=== PATIENT | male | born 1980 | race Caucasian/White ===

== ENCOUNTER → 2016-08-28 06:47 | Emergency (ER) | payer OTHER ==
[~2016-08-28 06:47] MED LIST: NS 0.9% 1000 ML* 1,000 ML IV ONE; levETIRAcetam TAB* 500 MG PO ONE
[2016-08-28 08:04] LABS: ALT 21 U/L (7-52); AST 17 U/L (13-39); Albumin 3.9 g/dL (3.2-5.2); Alkaline Phosphatase 39 U/L (34-104); Anion Gap 5 mmol/L (2-11); BUN/Creatinine Ratio 12.7 (8-20); Blood Urea Nitrogen 9 mg/dL (6-24); C Reactive Protein < 1.00 mg/L (< 5.00); CO2 Carbon Dioxide 24 mmol/L (22-32); Calcium 8.8 mg/dL (8.6-10.3); Chloride 99 mmol/L (101-111); Creatine Kinase 201 U/L (10-223); EGFR African American 159.7 (>60); EGFR Non-African American 124.2 (>60); Globulin 1.9 g/dL (2-4); Glucose 90 mg/dL (70-100); Lipase 16 U/L (11.0-82.0); Potassium 3.7 mmol/L (3.5-5.0); Sodium 128 mmol/L (133-145); Total Protein 5.8 g/dL (6.4-8.9)
[2016-08-28 08:10] LABS: Hematocrit 39 % (42-52); Hemoglobin 12.9 g/dl (14.0-18.0); Mean Corpuscular HGB Conc 33 g/dl (31-36); Mean Corpuscular Hemoglobin 28 pg (27-31); Mean Corpuscular Volume 85 fL (80-94); Mean Platelet Volume 8 um3 (7.4-10.4); Red Blood Count 4.57 10^6/ul (4.0-5.4); Red Cell Distribution Width 14 % (10.5-15); White Blood Count 6.7 10^3/ul (3.5-10.8)
[2016-08-28 09:30] LABS: Urine Bilirubin Negative (Negative); Urine Glucose Negative (Negative); Urine Nitrite Negative (Negative)
[2016-08-28 11:07] LABS: BUN/Creatinine Ratio 11.3 (8-20); Calcium 8.3 mg/dL (8.6-10.3); EGFR African American 186.7 (>60); EGFR Non-African American 145.2 (>60); Potassium 3.8 mmol/L (3.5-5.0)
--- NOTE | 2016-08-28 14:53 | ED ---
Mitch Naidu Benjamin, scribed for Casey Orellana MD on 08/28/16 at 0934 . Altered Mental Status - HPI Summary HPI Summary: 36yo male with hx of Sz comes to ED after having a Sz episode this morning. At 0545. Pt had a witnessed episode of generalized shaking, lasting approx.. 45 seconds. Pt had Sz episodes 5 years ago then 1 month ago previous to todays episode. Pt takes 2000mg Depakote 2000mg twice daily, and reports not missing any doses recently. Pt has been stressed recently according to family. PMHx includes DI. - History Of Current Complaint Chief Complaint: EDSeizure Stated Complaint: SEIZURE Time Seen by Provider: 08/28/16 07:56 Hx Obtained From: Patient, Family/Appeals Reviewer Veteran - and mother Onset/Duration: Suddenly - 0545 Timing: Lasting Seconds - 45 secs Severity Initially: Mild Severity Currently: None Aggravating Factor(s): Unknown Alleviating Factor(s): Nothing Associated Signs And Symptoms: Positive: Seizure - Allergies/Home Medications Allergies/Adverse Reactions: Allergies Allergy/AdvReac Type Severity Reaction Status Date / Time No Known Allergies Allergy Verified 08/28/16 07:29 PMH/Surg Hx/FS Hx/Imm Hx Neurological History: Reports: Hx Seizures Infectious Disease History: No Infectious Disease History: Denies: Traveled Outside the [place] in Last 30 Days - Family History Known Family History: Positive: Cardiac Disease, Hypertension Negative: Diabetes - Social History Occupation: Employed Full-time Lives: With Family Alcohol Use: None Substance Use Type: Reports: None Smoking Status (MU): Never Smoked Tobacco Review of Systems Constitutional: Negative Eyes: Negative ENT: Negative Cardiovascular: Negative Respiratory: Negative Gastrointestinal: Negative Genitourinary: Negative Musculoskeletal: Negative Skin: Negative Neurological: Other - Sz Psychological: Normal All Other Systems Reviewed And Are Negative: Yes Physical Exam Triage Information Reviewed: Yes Vital Signs On Initial Exam: Initial Vitals Temp Pulse Resp BP Pulse Ox 97.6 F 79 17 117/82 98 08/28/16 06:59 08/28/16 06:59 08/28/16 06:59 08/28/16 06:59 08/28/16 06:59 Vital Signs Reviewed: Yes Appearance: Positive: Well-Appearing, No Pain Distress, Well-Nourished Skin: Positive: Warm, Skin Color Reflects Adequate Perfusion, Dry Head/Face: Positive: Normal Head/Face Inspection Eyes: Positive: Normal ENT: Positive: Normal ENT inspection Neck: Positive: Supple, Nontender Respiratory/Lung Sounds: Positive: Clear to Auscultation, Breath Sounds Present Cardiovascular: Positive: RRR Abdomen Description: Positive: Nontender, Soft Bowel Sounds: Positive: Present Musculoskeletal: Positive: Strength/ROM Intact Neurological: Positive: Sensory/Motor Intact, Alert, Oriented to Person Place, Time, CN Intact II-III, Other - post ictal Psychiatric: Positive: Affect/Mood Appropriate - Mirta Coma Scale Coma Scale Total: 15 Diagnostics - Vital Signs Vital Signs Temp Pulse Resp BP Pulse Ox 08/28/16 09:00 66 15 123/69 96 08/28/16 08:30 65 16 123/77 96 08/28/16 08:00 72 20 117/72 96 08/28/16 07:30 74 11 112/75 95 08/28/16 07:01 81 15 97 08/28/16 07:00 117/82 08/28/16 06:59 97.6 F 79 17 117/82 98 - Laboratory Lab Results: Lab Results 08/28/16 08/28/16 08/28/16 Range/Units 07:23 07:24 07:24 WBC 6.7 (3.5-10.8) 10^3/ul RBC 4.57 (4.0-5.4) 10^6/ul Hgb 12.9 L (14.0-18.0) g/dl Hct 39 L (42-52) % MCV 85 (80-94) fL MCH 28 (27-31) pg MCHC 33 (31-36) g/dl RDW 14 (10.5-15) % Plt Count 169 (150-450) 10^3/ul MPV 8 (7.4-10.4) um3 Neut % (Auto) 47.3 (38-83) % Lymph % (Auto) 35.4 (25-47) % [place] % (Auto) 7.2 (1-9) % Eos % (Auto) 9.5 H (0-6) % Baso % (Auto) 0.6 (0-2) % Absolute Neuts (auto) 3.2 (1.5-7.7) 10^3/ul Absolute Lymphs (auto) 2.4 (1.0-4.8) 10^3/ul Absolute Monos (auto) 0.5 (0-0.8) 10^3/ul Absolute Eos (auto) 0.6 (0-0.6) 10^3/ul Absolute Basos (auto) 0 (0-0.2) 10^3/ul Absolute Nucleated RBC 0 10^3/ul Nucleated RBC % 0.1 INR (Anticoag Therapy) 0.98 (0.89-1.11) APTT 30.4 (26.0-36.3) seconds Sodium 128 L (133-145) mmol/L Potassium 3.7 (3.5-5.0) mmol/L Chloride 99 L (101-111) mmol/L Carbon Dioxide 24 (22-32) mmol/L Anion Gap 5 (2-11) mmol/L BUN 9 (6-24) mg/dL Creatinine 0.71 (0.67-1.17) mg/dL Est GFR ( Amer) 159.7 (>60) Est GFR (Non-Af Amer) 124.2 (>60) BUN/Creatinine Ratio 12.7 (8-20) Glucose 90 (70-100) mg/dL Lactic Acid (0.5-2.0) mmol/L Calcium 8.8 (8.6-10.3) mg/dL Total Bilirubin 0.40 (0.2-1.0) mg/dL AST 17 (13-39) U/L ALT 21 (7-52) U/L Alkaline Phosphatase 39 (34-104) U/L Total Creatine Kinase 201 (10-223) U/L C-Reactive Protein < 1.00 (< 5.00) mg/L Total Protein 5.8 L (6.4-8.9) g/dL Albumin 3.9 (3.2-5.2) g/dL Globulin 1.9 L (2-4) g/dL Albumin/Globulin Ratio 2.1 (1-3) Lipase 16 (11.0-82.0) U/L Valproic Acid 80.0 (50-100) mcg/mL 08/28/16 Range/Units 07:24 WBC (3.5-10.8) 10^3/ul RBC (4.0-5.4) 10^6/ul Hgb (14.0-18.0) g/dl Hct (42-52) % MCV (80-94) fL MCH (27-31) pg MCHC (31-36) g/dl RDW (10.5-15) % Plt Count (150-450) 10^3/ul MPV (7.4-10.4) um3 Neut % (Auto) (38-83) % Lymph % (Auto) (25-47) % [place] % (Auto) (1-9) % Eos % (Auto) (0-6) % Baso % (Auto) (0-2) % Absolute Neuts (auto) (1.5-7.7) 10^3/ul Absolute Lymphs (auto) (1.0-4.8) 10^3/ul Absolute Monos (auto) (0-0.8) 10^3/ul Absolute Eos (auto) (0-0.6) 10^3/ul Absolute Basos (auto) (0-0.2) 10^3/ul Absolute Nucleated RBC 10^3/ul Nucleated RBC % INR (Anticoag Therapy) (0.89-1.11) APTT (26.0-36.3) seconds Sodium (133-145) mmol/L Potassium (3.5-5.0) mmol/L Chloride (101-111) mmol/L Carbon Dioxide (22-32) mmol/L Anion Gap (2-11) mmol/L BUN (6-24) mg/dL Creatinine (0.67-1.17) mg/dL Est GFR ( Amer) (>60) Est GFR (Non-Af Amer) (>60) BUN/Creatinine Ratio (8-20) Glucose (70-100) mg/dL Lactic Acid 3.3 H* (0.5-2.0) mmol/L Calcium (8.6-10.3) mg/dL Total Bilirubin (0.2-1.0) mg/dL AST (13-39) U/L ALT (7-52) U/L Alkaline Phosphatase (34-104) U/L Total Creatine Kinase (10-223) U/L C-Reactive Protein (< 5.00) mg/L Total Protein (6.4-8.9) g/dL Albumin (3.2-5.2) g/dL Globulin (2-4) g/dL Albumin/Globulin Ratio (1-3) Lipase (11.0-82.0) U/L Valproic Acid (50-100) mcg/mL Result Diagrams: 08/28/16 07:23 08/28/16 10:37 Lab Statement: Any lab studies that have been ordered have been reviewed, and results considered in the medical decision making process. Re-Evaluation - Re-Evaluation First Eval Re-Evaluation Time: 09:30 - Discussed lab results. Altered Mental Statu Course/Dx - Course Course Of Treatment: Discussed pt case with Dr. Sanon (neurology) at 1222. NO CRITICAL CARE TIME. DR SANON SAW PATIENT IN ED. DISCHARGE HOME STABLE. - Diagnoses Discharge Diagnoses: Epilepsy, Diabetes insipidus Discharge - Discharge Plan Condition: Stable Disposition: HOME Prescriptions: Levetiracetam [Keppra 250] 250 mg PO BID #60 tab clonazePAM TAB(*) [Klonopin TAB(*)] 0.5 mg PO BEDTIME #14 tab MDD 1.5 Patient Education Materials: Epilepsy (ED), Diabetes Insipidus (ED) Referrals: Non Staff,Doctor [Primary Care Provider] - Sumaya Sanon MD [Medical Doctor] - Additional Instructions: FOLLOW UP WITH YOUR DOCTOR. RETURN TO THE EMERGENCY DEPARTMENT FOR ANY WORSENING OF YOUR CONDITION OR QUESTIONS OR CONCERNS. The documentation as recorded by the Mitch fountain Benjamin accurately reflects the service I personally performed and the decisions made by me, Casey Orellana MD.
[2016-08-28 15:14] VITALS: BP 116/70
--- NOTE | 2016-08-28 21:56 | CONS ---
CC: Dr. Geo Garza in [place], fax number is [phone]. CONSULTATION REPORT: DATE OF CONSULT: 08/28/16 - EMERGENCY DEPT. REQUESTING PHYSICIAN: Dr. Orellana. NEUROLOGIST: Dr. Geo Garza in [place], fax number is [phone]. HISTORY OF PRESENT ILLNESS: Mr. Destin Griffiths is a 36-year-old gentleman with a known history of epilepsy, who was brought to the emergency room this morning after approximately 45-second seizure between 5:30 a.m. to 6:00 a.m. Mr. Griffiths, originally started having seizures after being diagnosed with ADEM in 1998 at age 17. He initially was on Keppra; however, he would have breakthrough seizures at night. He was switched to Depakote. He has been more stable with Depakote with no seizures for the last 5 years, albeit he admits to auras. Approximately, 1 to 2 months ago, he did have a breakthrough seizure for unclear reasons and his Depakote was increased to 1000 mg p.o. b.i.d. He reported a level just above 100, but he is unclear whether it was a trough level. This morning, he had a trough level of 80. His describes his seizure as waking up and saying something or making a weird noise followed by generalized convulsion. He can have an aura that can occur without a seizure and he describes this as a sensation in his brain almost like an electric shock , sometimes there can be noises that he hears. He does not always go on to have a seizure when he has an aura and he has had breakthrough auras in the last 5 years. Initially, it was difficult to control his seizures, and he was on Keppra, they often identified triggers such as staying up too late, drinking alcohol, levels being off. When he would have breakthrough seizures, they would occur at night. Low sodium could also be an issue leading to seizures. When he had a seizure 1 month ago, his sodium level was 132, today it was 128. After his seizures, Destin does have postictal state and confusion. He has been sleeping quite a bit since coming to the emergency room. He indicates with recent increase in Depakote, he finds he is more irritable, he has less focus, he has noticed a fine tremor. 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 He has also noticed that he is more clumsy and he thinks this is worse since increase in valproate, it came out he has had intermittent diarrhea and his ammonia level was high in the past. In regards to seizure medications, he was on Keppra in the past and continued to have breakthrough seizures as noted above. He also in the remote past was on Dilantin. PAST MEDICAL HISTORY: Includes diabetes insipidus, diagnosed at age 8, thought to be secondary to head injury. 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 He has been on DDAVP, and this has helped. He has seen choir member in the past, but has not been seeing one recently. He varies his dosing frequency according to symptoms. He has a history of hyperlipidemia, and this being a familial hyperlipidemia. Seizure disorder as mentioned above consistent with partial seizure with secondary generalization, most of it secondary to his ADEM. 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 CURRENT MEDICATIONS: Include: 1. Acyclovir 400 mg p.o. daily. 2. Atorvastatin 20 mg p.o. q.h.s. 3. DDAVP 0.2 mg p.o. t.i.d. 4. Valproate 500 mg 2 tablets p.o. b.i.d. 5. Flonase that he tends to use every day. 6. Zyrtec versus Claritin 1 tablet p.o. daily. ALLERGIES: He has no known drug allergies. FAMILY HISTORY: Includes mother 69, with high cholesterol, hypertension, depression and asthma. Father 71, with coronary artery disease with bypass, prostate cancer, high cholesterol. Brother with high cholesterol. A 14-month- old son, who is healthy. SOCIAL HISTORY: Mr. Griffiths does not smoke. He does not drink alcohol. He stopped drinking a month ago, prior to that time it was rare that he would have alcohol. 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 He is , lives with his who is also a nurse. He is currently here in [place] visiting his mother. They have a [id number]-iuh son, who is healthy. REVIEW OF SYSTEMS: Positive findings include, cognitive changes as noted above. There has been no change in his vision. No difficulty swallowing. Mood changes as noted above. There has been no chest pain, chest pressure, or shortness of breath. He denies any change in urination. There has been intermittent diarrhea. There has been no numbness or weakness of the arms or legs, no rashes and he does feel there has been some change in coordination as mentioned above. PHYSICAL EXAM: Most recent blood pressure was 116/75, his pulse was 77, saturation 96%, respiratory rate 18, temperature was recorded at 97.6 degrees Fahrenheit. He had a regular cardiac rhythm. His lungs were clear to auscultation. There was no evidence of peripheral edema, good peripheral pulses. No evidence of rash. He was awake, alert, and articulate. Had normal language function. Adequate fund of knowledge. He did appear tired. His pupils were equal and responsive to light. His fundi were flat. He had full extraocular movements with no nystagmus and full zee to confrontation. His facial expression, sensation, and hearing were equal. Palate was upgoing. Tongue was midline. Sternocleidomastoid and trapezius were 5/5 in strength. There was normal bulk and tone. No pronator drift with full strength in his upper and lower extremities. Normal [id number], [id number] movements. Vibration sensation was decreased at large toes by 10 seconds. Proprioception was intact. There was no asymmetry to pinprick, cold, or light touch. His Romberg was negative. He performed tandem gait without difficulty for a few steps with the room that we had in the emergency room. He was able to walk on his heels and his toes. DIAGNOSTIC STUDIES/LAB DATA: Includes CBC with hemoglobin and hematocrit, which were low at 12.9 and 39, normal white count, normal platelet count and 9.5 % eosinophils. His INR was normal. His initial sodium was 129, repeated at 133. His creatinine was within normal limits at 0.71 on admission and reduced to 0.62 on repeat testing. His glucose was initially 90, repeated at 123 and his lactate was initially 3.3, repeated at 2.7. His calcium was initially normal at 8.8, repeated at 8.3. His total protein was low at 5.8, and globulin was low at 1.9. C-reactive protein was normal. CK was 201 and liver function tests were otherwise negative. His urinalysis showed low specific gravity and trace ketones, but was otherwise negative. His valproate was 80. IMPRESSION: Mr. Destin Griffiths is a 36-year-old gentleman with history of acute disseminated encephalomyelitis, diabetes insipidus and currently taking ddAVP, epilepsy for 12 years, who now presents with second breakthrough seizure in recent months and nonfocal history and exam as well as verbally reported negative MRI Brain about a month ago. His examination at this time is nonfocal and no focal new findings were found to suggest need for MRI at this time. He reports no new symptoms to suggest a progressive demyelinating disease. As far as cause of his breakthrough seizure, hyponatremia is a potential. He is in the therapeutic range on Depakote with a level of 80. He was reported to have a high level in [place]; however, it is unclear that this was a trough level. He has had a cognitive concerns and given history that his ammonia was high in the past, I will ask that ammonia level is drawn for reference for his neurologist in [place] as we will need to be determined whether he remains on Depakote. In addition, there is a potential for Depakote and DDAVP together to result in syndrome of inappropriate secretion of antidiuretic hormone/ hyponatremia. One must question role of hyponatremia, I think it is important for him to get involved in choir member and will have to work with his primary neurologist to determine whether Depakote is the best medication for him. We went through options of how to proceed with treatment, including not changing any medications vs adding medications. After much discussion, we decided to add low-dose Keppra 250 mg p.o. b.i.d. as he has tolerated this medication before in the past without any significant allergic reaction or mood change. It does not interact with his other medications. It will give him some added protection. I have also suggested giving him low-dose clonazepam that he can use at bedtime 0.5 mg to use half to one tablet p.o. q.h.s. during the time that he is travelling to help prevent seizures from occurring. This is not a long-term solution and should be just used for a short-term basis until determination can be made on adding or switching to other medications. Potential for sedation, addiction and tolerance was discussed. He had questions about some of the newer medications. We talked about Vimpat as he had questions regarding this. We talked also about lamotrigine, which could be a very good medication for him, however, one would have to go on extremely slowly in the setting of valproate. The combination of valproate and lamotrigine can be very potent combination, ideally however one must consider whether valproate is the best medication for him. TIME SPENT: Over 75 minutes was spent in [id number] patient care, over 50% of the time was spent in education, and questions were answered, card was given with our practice phone number for reference for him if he has any problems while in [place] that he call, as there is always someone precision instrument maker 24 hours a day. ER physician did try to reach Dr. Geo Garza without success and I have included a CC with fax number for his doctor so he is aware of what we saw on today's visit and what was discussed. It is my pleasure to participate in Mr. Griffiths's care. [id number]/[facility] #: [id number] Addendum: Ammonia level was 79. With this level of ammonia and reports of previous high levels, serious consideration should be given to transitioning him to an alternative antiepileptic medication. GARYD
== END | disposition home or self-care (01) ==
LOC: ED 06:47
DX: G40.909 Epilepsy, unspecified, not intractable, without status epilepticus (principal); E23.2 Diabetes insipidus
CPT/HCPCS: 36415; 80048; 80053; 80164; 81003; 82140; 82550; 83605; 83690; 85025; 85610; 85730; 86140; 99282; A9270-GY